=== PATIENT | female | born 1970 | race Native Hawaiian/Other Pacific Islander ===

== ENCOUNTER 2017-05-11 05:35 | Inpatient (IN) | payer BC, OTHER ==
[~2017-05-11] VITALS: Ht 154.9 cm; Wt 64.4 kg
[2017-05-11 06:42] LABS: *URINE HCG, QUAL NEGATIVE (NEGATIVE)
[2017-05-11 06:51] LABS: BILIRUBIN,TOTAL 0.3 mg/dL (0.2-1.0); CREATININE 0.8 mg/dL (0.6-1.3); POTASSIUM 3.9 mmol/L (3.5-5.1); TOTAL PROTEIN, SERUM 6.5 g/dL (6.4-8.2)
[2017-05-11] MEDS ORDERED: NEOSTIGMINE METHYLSULFATE 10 MG/10 ML VIAL ONE (07:38)
[2017-05-11] MEDS ORDERED: METOCLOPRAMIDE HCL 10 MG/2 ML VIAL ONE (07:38)
[2017-05-11] MEDS ORDERED: MIDAZOLAM HCL 2 MG/2 ML VIAL ONE (07:39)
[2017-05-11] MEDS ORDERED: GLYCOPYRROLATE 0.2 MG/ML VIAL ONE (07:39)
[2017-05-11] MEDS ORDERED: FENTANYL CITRATE 250 MCG/5 ML AMPUL ONE (07:39)
[2017-05-11] MEDS ORDERED: SUCCINYLCHOLINE CHLORIDE 200 MG/10 ML VIAL ONE (07:40)
[2017-05-11] MEDS ORDERED: ROCURONIUM BROMIDE 50 MG/5 ML VIAL ONE (07:40)
[2017-05-11] MEDS ORDERED: BUPIVACAINE/EPI PF 0.5% 10 ML VIAL ONE (07:56)
[2017-05-11] MEDS ORDERED: METHYLENE BLUE 10 MG/ML VIAL XX ONE (11:00)
[2017-05-11] MEDS ORDERED: HYDROCODONE/APAP 5-325MG TABLET PO PRN (11:15)
[2017-05-11] MEDS ORDERED: ONDANSETRON 4 MG/2 ML VIAL IV PRN (11:15)
[2017-05-11] MEDS ORDERED: DOCUSATE SODIUM 250 MG CAPSULE PO PRN (11:15)
[2017-05-11] MEDS ORDERED: ACETAMINOPHEN 325 MG TABLET PO PRN (11:15)
[2017-05-11] MEDS ORDERED: SENNOSIDES 1 TABLET PO PRN (11:15)
[2017-05-11] MEDS ORDERED: MEPERIDINE 25 MG/1 ML DISP.SYRIN ONE (11:22)
[2017-05-11] MEDS ORDERED: ONDANSETRON 4 MG/2 ML VIAL ONE (11:23)
[2017-05-11] MEDS ORDERED: ACETAMINOPHEN ES 500 MG TABLET PO PRN (12:00)
[2017-05-11] MEDS ORDERED: HYDROMORPHONE 1 MG/1 ML DISP.SYRIN ONE (12:01)
[2017-05-11 12:57] VITALS: BP 96/60
[2017-05-11] MEDS: IV D5W-0.45% NS +20 KCL 1,000 ML IV PRN (13:29)
[2017-05-11 15:56] VITALS: BP 108/69
[2017-05-11] MEDS: PANTOPRAZOLE SODIUM 40 MG TABLET.DR PO SCH (16:01)
[2017-05-11] MEDS ORDERED: CEFAZOLIN 1 G VIAL MC ONE (18:24)
[2017-05-11] MEDS ORDERED: SEVOFLURANE 250 ML BOTTLE IH ONE (18:24)
[2017-05-11] MEDS ORDERED: METOCLOPRAMIDE HCL 10 MG/2 ML VIAL IV ONE (18:24)
[2017-05-11] MEDS ORDERED: PROPOFOL 200 MG/20 ML BOTTLE IV ONE (18:24)
[2017-05-11] MEDS ORDERED: ONDANSETRON 4 MG/2 ML VIAL IV ONE (18:24)
[2017-05-11] MEDS ORDERED: IV NORMAL SALINE 1000 ML BAG IV ONE (18:24)
[2017-05-11] MEDS: HYDROMORPHONE 1 MG/1 ML DISP.SYRIN IV PRN (19:54)
[2017-05-11 20:00] VITALS: BP 110/71
[2017-05-12] VITALS: BP 106/65
[2017-05-12] MEDS: IV D5W-0.45% NS +20 KCL 1,000 ML IV PRN (02:10)
[2017-05-12] MEDS: HYDROMORPHONE 1 MG/1 ML DISP.SYRIN IV PRN (02:24)
[2017-05-12] MEDS: PANTOPRAZOLE SODIUM 40 MG TABLET.DR PO SCH (06:17)
[2017-05-12 07:19] LABS: BASOPHILS % (AUTO) 0.4 % (0.0-2.0); EOSINOPHILS # (AUTO) 0.1 K/uL (0.0-0.7); HEMATOCRIT 29.1 % (37-47); HEMOGLOBIN 9.8 G/DL (12.0-16.0); LYMPHOCYTES # (AUTO) 2.8 K/UL (0.8-4.8); LYMPHOCYTES % (AUTO) 39.1 % (20.5-51.5); MEAN CORPUSCULAR HEMOGLOBIN 30.9 UUG (27.0-31.0); MEAN CORPUSCULAR HGB CONC 34 g/dL (32.0-37.0); MEAN CORPUSCULAR VOLUME 92.1 FL (81.0-99.0); MONOCYTES # (AUTO) 0.7 K/UL (0.1-1.30); MONOCYTES % (AUTO) 9.8 % (0.0-11.0); NEUTROPHILS # (AUTO) 3.7 K/UL (1.8-8.9); NEUTROPHILS % (AUTO) 49.7 % (38.5-71.5); PLATELET COUNT (AUTO) 144 K/UL (150-450); RED BLOOD CELL COUNT(AUTO) 3.16 MIL/UL (4.2-5.4); WHITE BLOOD COUNT (AUTO) 7.3 K/UL (4.0-11.2)
[2017-05-12 07:29] LABS: CREATININE 0.8 mg/dL (0.6-1.3); POTASSIUM 3.3 mmol/L (3.5-5.1)
[2017-05-12] MEDS ORDERED: ENOXAPARIN SODIUM 40 MG/0.4 ML DISP.SYRIN SQ SCH (09:00)
[2017-05-12 12:03] VITALS: BP 100/66
[2017-05-12] MEDS ORDERED: POTASSIUM CHLORIDE 20 MEQ TAB.PRT.SR PO ONE (13:00)
[2017-05-12 15:05] VITALS: BP 102/72
[2017-05-12] MEDS ORDERED: OMEG1CAP PO (15:37)
[2017-05-12] MEDS ORDERED: ONDA4TAB11 PO (15:37)
[2017-05-12] MEDS ORDERED: CHOL10002 PO (15:37)
[2017-05-12] MEDS ORDERED: EXEN5PEN2 SQ (15:37)
[2017-05-12] MEDS ORDERED: ZOLP5TAB8 PO (15:37)
[2017-05-12] MEDS ORDERED: LORA1TAB PO (15:37)
[2017-05-12] MEDS ORDERED: ASPI81TA31 PO (15:37)
[2017-05-12] MEDS ORDERED: FILG300D2 SQ (15:37)
[2017-05-12] MEDS ORDERED: METO-302 PO (15:37)
[2017-05-12] MEDS ORDERED: METF-495 PO (15:37)
[2017-05-12] MEDS ORDERED: TAMO20TA4 PO (15:37)
[2017-05-12] MEDS ORDERED: LEUP3.753 IM (15:37)
[2017-05-12] MEDS ORDERED: ATOR10TA PO (15:37)
[2017-05-12] MEDS ORDERED: ESCI10TA55 PO (15:37)
[2017-05-12] MEDS ORDERED: PROC10TA PO (15:37)
[2017-05-12] MEDS ORDERED: LORAZEPAM 1 MG TABLET PO PRN ×2 (15:45→21:45)
[2017-05-12] MEDS ORDERED: PROCHLORPERAZINE MALEATE 10 MG TABLET PO PRN (15:45)
[2017-05-12] MEDS ORDERED: ONDANSETRON ODT 4 MG TAB.RAPDIS SL PRN (15:45)
[2017-05-12] MEDS ORDERED: METFORMIN HCL 500 MG TABLET PO SCH (16:30)
[2017-05-12] MEDS ORDERED: MUPIROCIN 2% OINT 22 GM TUBE NS SCH (17:00)
[2017-05-12] MEDS ORDERED: METOPROLOL SUCCINATE XL 25 MG TAB.SR.24H PO SCH (17:00)
[2017-05-12] MEDS ORDERED: METOPROLOL TARTRATE 25 MG TABLET PO SCH (21:00)
[2017-05-12] MEDS ORDERED: ZOLPIDEM 5 MG TABLET PO PRN (21:00)
[2017-05-13] MEDS ORDERED: OMEGA-3 FATTY ACIDS/FISH OIL CAPSULE PO SCH (09:00)
[2017-05-13] MEDS ORDERED: ESCITALOPRAM OXALATE 10 MG TABLET PO SCH (09:00)
[2017-05-13] MEDS ORDERED: ASPIRIN 81 MG TAB.CHEW PO SCH (09:00)
[2017-05-13] MEDS ORDERED: TAMOXIFEN CITRATE 20 MG PO SCH (09:00)
[2017-05-13] MEDS ORDERED: CHOLECALCIFEROL 1,000 UNIT TABLET PO SCH (09:00)
[2017-05-13] MEDS ORDERED: ZOLPIDEM 5 MG TABLET PO SCH (09:00)
[2017-05-13] MEDS ORDERED: ATORVASTATIN 10 MG TABLET PO SCH (09:00)
== END 2017-05-12 18:25 | disposition home or self-care (01) | DRG 581 ==
LOC: DS 05:35 → MED 11:28
PROVIDERS: ADMIT Internal Medicine; ATTEND Surgery
PROC: 0HTU0ZZ Resection of Left Breast, Open Approach (ICD-10-PCS; principal; 2017-05-11 08:05)
PROC: 07B60ZZ Excision of Left Axillary Lymphatic, Open Approach (ICD-10-PCS; principal; 2017-05-11 08:05)
DX: C50.912 Malignant neoplasm of unspecified site of left female breast (principal); E78.5 Hyperlipidemia, unspecified; D64.9 Anemia, unspecified; E11.9 Type 2 diabetes mellitus without complications; E66.3 Overweight; E87.6 Hypokalemia; E88.09 Other disorders of plasma-protein metabolism, not elsewhere classified; Z22.322 Carrier or suspected carrier of Methicillin resistant Staphylococcus aureus; Z68.26 Body mass index [BMI] 26.0-26.9, adult; Z79.899 Other long term (current) drug therapy
CPT/HCPCS: 36415; 84703; 85025; A4649; A4663; J0330; J0690; J1170; J1650; J2175; J2250; J2405; J2710; J2765; J3010; J3490; J7030; Q9968